=== PATIENT | female | born 1960 | race Caucasian/White ===

== ENCOUNTER 2016-05-14 20:02 | Emergency (ER) | payer OTHER ==
[~2016-05-14] VITALS: Ht 165.1 cm; Wt 100.4 kg
[~2016-05-14 20:02] MED LIST: Aspirin E.C. PO; CARAFATE1 GM PO; CELEBREX200 MG PO; FLEXERIL10 MG PO; GLIPIZIDE10 MG; GLUCOTROL10 MG PO; HYDROCHLOROTHIA25 MG PO; IBUPROFEN800 MG PO; LEXAPRO20 MG PO; LIDOCAINE700 MG TD; LITHIUM CARBON300 MG PO; MACROBID100 MG PO; MELOXICAM15 MG PO; MOTRIN600 MG PO; NEURONTIN300 MG PO; PANTOPRAZOLE SO40 MG PO; PEPCID AC10 MG PO; PRINIVIL20 MG PO; PROVENTIL,2.5 MG/3 M IH; PROZAC20 M1; SAPHRIS10 MG SL; SYMBICORT60 INHALAT IH; VENTOLIN17 GM; ZESTRIL,PRINIVI20 MG; ZOLOFT50 MG PO; ZYRTEC10 M3 PO
[2016-05-14] MEDS ORDERED: ULTRAM50 MG PO (21:40)
[2016-05-14] MEDS ORDERED: MOBIC7.5 MG PO (21:40)
[2016-05-14 22:02] VITALS: BP 125/84
== END 2016-05-14 22:03 | disposition home or self-care (01) ==
LOC: EME 20:02
DX: S80.01XA Contusion of right knee, initial encounter (principal); S50.01XA Contusion of right elbow, initial encounter; W01.0XXA Fall on same level from slipping, tripping and stumbling without subsequent striking against object, initial encounter
CPT/HCPCS: 73564; 99281; 99283